=== PATIENT | male | born 1940 | race Caucasian/White ===

== ENCOUNTER 2024-10-20 06:05 | Day surgery (SDC) | payer MEDICARE, OTHER, SELFPAY ==
[2024-10-11 13:25] VITALS: BMI 34.1
[2024-10-19 11:21] VITALS: BMI 34.1
[2024-10-20] MEDS: LACTATED RINGERS 1,000 ML 42 ML IV (06:50)
[2024-10-20] MEDS: ALBUTEROL/IPRATROPIUM 3 ML AMPUL INH (06:56)
[2024-10-20] MEDS: ACETAMINOPHEN 325 MG TABLET 975 MG PO (06:57)
[2024-10-20 07:10] VITALS: BP 120/78; PULSE 73; RESP 19; TEMP 36.9; O2SAT 96; BMI 34.4
--- NOTE | 2024-10-20 07:30 | PM.PREOP ---
Pre-operative Note Interval Note History & Physical reviewed/Exam performed by Physician: Yes Changes to H&P: No
--- NOTE | 2024-10-20 07:34 | PM.OP.1 ---
Operative Date/Time/Diagnoses Date of procedure: 10/20/24 Time of procedure: 07:34 Pre-op diagnosis: Left second hammertoe Post-op diagnosis: same Procedure & Clinicians Procedure: Left second toe amputation Same procedure as scheduled: Yes Indications: 84-year-old male presents for the left 2nd toe amputation. The day he has had painful hammertoe and development of corns on going with difficulty in wearing shoes. Conservative measures have failed to alleviate his pain and he and his of wished to proceed with surgical intervention at this time. Please note the risks and potential complications as well as alternatives and expected outcomes. Consent has been reviewed and signed. There are no contraindications to the procedure at this time. Surgeon: Leah Biswas Click Yes if Unassisted: Yes Anesthesia Type: General Operative Notes Closure Type: primary Specimen(s): none sent Estimated Blood Loss (mL): 15 Blood products transfused: none Tourniquet time (min): 6 Procedure in detail: The patient was brought to the operating room and placed on the operating table in the supine position. The tourniquet was placed about the left ankle. Well padded, appropriately aligned. After induction of anesthesia the foot and ankle were prepped and draped in the usual aseptic manner. The tourniquet was inflated to the left ankle. After check of anesthesia a full-thickness circumferential incision was made around the left 2nd toe. This was then continued into the metatarsophalangeal joint linearly. The toe was carefully disarticulated and passed from the field. The area was irrigated with copious amounts of normal sterile saline. No necrotic tissue or abscesses were noted. Skin and tissue was revised to allow for appropriate closure. Vessels were cauterized and ligated as necessary. 4-0 Vicryl was used subcutaneously for closure and 3-0 nylon for the skin. The area was dressed with a sterile lightly compressive dressing and postoperative shoe. Complications: none Post-operative Condition: stable Disposition: PACU Plan for aftercare: Following a period of postoperative monitoring, the patient will be discharged to home on written and oral postoperative instructions including keeping the dressing dry and intact, no greater than 50% weight to the surgical foot, no ice to the foot, elevating the foot when seated home. DVT prevention techniques have been reviewed. For the 1st postoperative visit the dressing will be changed and close to the 2nd to 3rd postoperative week we will likely remove the sutures. Of note, pre-operatively a HA1c was drawn and level was 6.7.
[2024-10-20 07:51] LABS: Hemoglobin A1C% w Est Avg Glu 6.7 % (4.0-6.0)
[2024-10-20] MEDS: CEFAZOLIN 2 GM/100 ML PREMIX 100 ML IV (07:55)
[2024-10-20] MEDS: BUPIVACAINE 0.5% (PF) 30 ML VIAL INJ (08:09)
--- NOTE | 2024-10-20 08:12 | SUR.OPER ---
Supine on padded OR bed, head on wedge, arms secured on padded arm boards at <90 degrees abduction, legs uncrossed, safety belt at thigh, tape over blanket over non operative leg.
[2024-10-20 08:43] VITALS: BP 101/61; PULSE 67; RESP 21; TEMP 36.2; O2SAT 98
[2024-10-20 08:48] VITALS: BP 89/49; PULSE 61; RESP 18; O2SAT 97
[2024-10-20 08:51] VITALS: BP 89/57; PULSE 59; RESP 18; O2SAT 97
[2024-10-20 08:53] VITALS: BP 89/63; PULSE 63; RESP 18; O2SAT 99
[2024-10-20 08:58] VITALS: BP 103/54; PULSE 60; TEMP 36.2; O2SAT 99
== END 2024-10-20 09:34 | disposition home or self-care (01) ==
PROVIDERS: PCP Internal Medicine; Referring Provider Podiatrist; Visit Provider Podiatrist
PROC: (CPT 28820; principal; 2024-10-20 07:45)
DX: M20.42 Other hammer toe(s) (acquired), left foot (principal); M20.12 Hallux valgus (acquired), left foot; M21.612 Bunion of left foot; R09.89 Other specified symptoms and signs involving the circulatory and respiratory systems; Z87.891 Personal history of nicotine dependence
CPT/HCPCS: 28820; 82962; 83036; J0690; J2704; J3010